=== PATIENT | female | born 1955 | race Caucasian/White ===

== ENCOUNTER 2020-06-13 16:33 | Inpatient (IN) | payer OTHER ==
[~2020-06-13] VITALS: Ht 160 cm; Wt 69.4 kg
[2020-06-13 18:16] LABS: BASOPHILS % 0.4 % (0.0-1.0); HEMATOCRIT 40.2 % (34.2-44.1); HEMOGLOBIN 13.1 g/dL (12.0-16.0); LYMPHOCYTES # (AUTO) 0.6 (1.0-3.2); LYMPHOCYTES % 22.4 % (18.0-39.1); MEAN CORPUSCULAR HEMOGLOBIN 29.4 pg (28-32); MEAN CORPUSCULAR HGB CONC 32.6 g/dL (31-35); MEAN CORPUSCULAR VOLUME 90.1 fL (81-99); MONOCYTES # (AUTO) 0.5 (0.2-0.8); MONOCYTES % 18.8 % (4.4-11.3); NEUTROPHILS # (AUTO) 1.5 (2.1-6.9); PLATELET COUNT 163 x10e3/uL (140-360); RED BLOOD COUNT 4.46 x10e6/uL (3.6-5.1); RED CELL DISTRIBUTION WIDTH 13.3 % (11.7-14.4)
[2020-06-13] MEDS ORDERED: ABILIFY15 MG (18:22)
[2020-06-13] MEDS ORDERED: ZOLPIDEM TARTRAT5 MG PO (18:22)
[2020-06-13] MEDS ORDERED: DIVALPROEX SOD500 M1 (18:22)
[2020-06-13] MEDS ORDERED: QUETIAPINE FUM100 MG PO (18:22)
[2020-06-13 18:37] LABS: ALANINE AMINOTRANSFERASE 70 IU/L (0-55); ALBUMIN 3.8 g/dL (3.5-5.0); ALBUMIN/GLOBULIN RATIO 0.8 (0.8-2.0); ALKALINE PHOSPHATASE 36 IU/L (40-150); ANION GAP 20.1 mmol/L (8-16); BLOOD UREA NITROGEN 18 mg/dL (7-26); BUN/CREATININE RATIO 19 (6-25); CALCIUM 8.9 mg/dL (8.4-10.2); CARBON DIOXIDE 23 mmol/L (22-29); CHLORIDE 100 mmol/L (98-107); CREATININE, SERUM 0.93 mg/dL (0.57-1.11); EST GLOMERULAR FILTRATION RATE > 60 ML/MIN (60-); GLUCOSE 75 mg/dL (74-118); POTASSIUM 4.1 mmol/L (3.5-5.1); SODIUM 139 mmol/L (136-145)
[2020-06-13] MEDS ORDERED: ACETAMINOPHEN 325 MG TAB PO ONE (19:00)
[2020-06-13 19:06] LABS: CLARITY,URINE SL CLOUDY (CLEAR); COLOR,URINE STRAW (YELLOW); KETONES,URINE >=160 (NEGATIVE); LEUKOCYTE ESTERASE ,URINE NEGATIVE (NEGATIVE); NITRITE,URINE NEGATIVE (NEGATIVE); PROTEIN,URINE DIPSTICK 2+ (NEGATIVE); URINE UROBILINOGEN 0.2 mg/dL (0.2 - 1)
[2020-06-13 19:18] LABS: BACTERIA,URINE FEW /HPF; EPITHELIAL CELLS,URINE RARE /LPF; RBC,URINE 0-5 /HPF (0-5)
[2020-06-13] MEDS ORDERED: ACETAMINOPHEN 325 MG TAB PO PRN ×2 (20:45→23:00)
[2020-06-13] MEDS ORDERED: DEXAMETHASONE SOD PHOS 10 MG/1 ML VIAL IV ONE (22:00)
[2020-06-13] MEDS: AZITHROMYCIN 500MG/NS 250 ML 250 ML IV SCH (23:13)
[2020-06-13] MEDS: ENOXAPARIN INJ 80 MG/0.8 ML SYR SC SCH (23:13)
[2020-06-13 23:38] LABS: CREATINE KINASE MB 6.4 ng/mL (0-5.0)
[2020-06-14] VITALS (9 sets, daily range): BP systolic 93–109; BP diastolic 64–81
[2020-06-14] MEDS ORDERED: HYDRALAZINE HCL 20 MG/ML VIAL IV PRN (01:15)
[2020-06-14] MEDS ORDERED: POLYETHYLENE GLYCOL 3350 17 GM PACK PO PRN (01:15)
[2020-06-14] MEDS ORDERED: TEMAZEPAM 7.5 MG CAP PO PRN (01:15)
[2020-06-14] MEDS ORDERED: ONDANSETRON HCL INJ 2MG/ML 2ML 2 MG/ML VIAL IV PRN (01:15)
[2020-06-14] MEDS: CEFTRIAXONE SOD 2 GM/NS 100 ML 100 ML IV SCH (02:36)
[2020-06-14] MEDS ORDERED: CEFTRIAXONE SOD 1 GM VIAL ONE (02:41)
[2020-06-14] MEDS ORDERED: SODIUM CHLORIDE 0.9% 100 ML ONE (02:42)
[2020-06-14] MEDS ORDERED: SODIUM CHLORIDE 0.9% 250ML 250 ML ONE (02:54)
[2020-06-14 08:25] LABS: HEMATOCRIT 39.4 % (34.2-44.1); HEMOGLOBIN 12.8 g/dL (12.0-16.0); LYMPHOCYTES # (AUTO) 0.8 (1.0-3.2); LYMPHOCYTES % 42.3 % (18.0-39.1); MEAN CORPUSCULAR HEMOGLOBIN 29.3 pg (28-32); MEAN CORPUSCULAR HGB CONC 32.5 g/dL (31-35); MEAN CORPUSCULAR VOLUME 90.2 fL (81-99); MONOCYTES # (AUTO) 0.2 (0.2-0.8); MONOCYTES % 8.2 % (4.4-11.3); PLATELET COUNT 179 x10e3/uL (140-360); RED BLOOD COUNT 4.37 x10e6/uL (3.6-5.1); RED CELL DISTRIBUTION WIDTH 13.3 % (11.7-14.4)
[2020-06-14] MEDS: ENOXAPARIN INJ 80 MG/0.8 ML SYR SC SCH (08:32)
[2020-06-14] MEDS: FAMOTIDINE 20 MG/2 ML VIAL IV SCH (08:32)
[2020-06-14] MEDS: ZINC SULFATE 220 MG CAP PO SCH (08:32)
[2020-06-14] MEDS: CHOLECALCIFEROL 400 UNIT TAB PO SCH (08:32)
[2020-06-14] MEDS: ASCORBIC ACID 500 MG TAB PO SCH ×2 (08:32→16:40)
[2020-06-14] MEDS: DOCUSATE SODIUM 100 MG CAP PO SCH ×2 (08:32→16:40)
[2020-06-14 08:55] LABS: ALANINE AMINOTRANSFERASE 63 IU/L (0-55); ALBUMIN 3.3 g/dL (3.5-5.0); ALBUMIN/GLOBULIN RATIO 0.7 (0.8-2.0); ALKALINE PHOSPHATASE 33 IU/L (40-150); ANION GAP 17.4 mmol/L (8-16); BLOOD UREA NITROGEN 19 mg/dL (7-26); BUN/CREATININE RATIO 25 (6-25); CALCIUM 8.7 mg/dL (8.4-10.2); CARBON DIOXIDE 22 mmol/L (22-29); CHLORIDE 104 mmol/L (98-107); CREATININE, SERUM 0.77 mg/dL (0.57-1.11); EST GLOMERULAR FILTRATION RATE > 60 ML/MIN (60-); GLUCOSE 128 mg/dL (74-118); PHOSPHORUS 4.2 MG/DL (2.3-4.7); POTASSIUM 4.4 mmol/L (3.5-5.1); SODIUM 139 mmol/L (136-145)
[2020-06-14 09:12] LABS: CREATINE KINASE 5822 IU/L (29-168)
[2020-06-14 10:17] LABS: INR 1.01; PROTHROMBIN TIME 13.9 seconds (11.9-14.5)
[2020-06-14 10:18] LABS: PARTIAL THROMBOPLASTIN TIME 42.8 seconds (23.8-35.5)
[2020-06-14] MEDS ORDERED: DEXTROSE 50% SYRINGE 50 ML IV PRN (12:15)
[2020-06-14] MEDS ORDERED: TEMAZEPAM 15 MG CAP PO PRN (13:30)
[2020-06-14] MEDS: DEXAMETHASONE SOD PHOS INJ 4 MG/ML VIAL IV SCH (13:47)
[2020-06-14] MEDS ORDERED: REMDESIVIR 200MG/NS 100ML 200 MG in SODIUM CHLORIDE 0.9% 100 ML 100 ML IV ONE ×2 (14:00→15:00)
[2020-06-14] MEDS: INSULIN REGULAR, HUMAN 100 UNIT/1 ML 3ML VIAL SQ SCH ×2 (16:30→20:45)
[2020-06-14] MEDS: AZITHROMYCIN 500MG/NS 250 ML 250 ML IV SCH (23:00)
[2020-06-15] VITALS (7 sets, daily range): BP systolic 90–106; BP diastolic 51–82
[2020-06-15] MEDS: CEFTRIAXONE SOD 2 GM/NS 100 ML 100 ML IV SCH (02:00)
[2020-06-15] MEDS ORDERED: DIAZEPAM5 MG PO (05:08)
[2020-06-15] MEDS ORDERED: LORAZEPAM INJ 2 MG/ML VIAL IV PRN (05:30)
[2020-06-15] MEDS: ENOXAPARIN 30 MG/0.3 ML SYR SC SCH ×2 (05:41→16:41)
[2020-06-15 06:05] LABS: BASOPHILS % 0.2 % (0.0-1.0); HEMATOCRIT 39.2 % (34.2-44.1); HEMOGLOBIN 12.2 g/dL (12.0-16.0); LYMPHOCYTES # (AUTO) 1.3 (1.0-3.2); LYMPHOCYTES % 30.3 % (18.0-39.1); MEAN CORPUSCULAR HGB CONC 31.1 g/dL (31-35); MEAN CORPUSCULAR VOLUME 93.3 fL (81-99); MONOCYTES # (AUTO) 0.6 (0.2-0.8); MONOCYTES % 12.7 % (4.4-11.3); NEUTROPHILS # (AUTO) 2.4 (2.1-6.9); NEUTROPHILS % 56.6 % (38.7-80.0); PLATELET COUNT 166 x10e3/uL (140-360); RED CELL DISTRIBUTION WIDTH 13.3 % (11.7-14.4)
[2020-06-15 06:22] LABS: ALANINE AMINOTRANSFERASE 55 IU/L (0-55); ALBUMIN 3.2 g/dL (3.5-5.0); ALBUMIN/GLOBULIN RATIO 0.7 (0.8-2.0); ALKALINE PHOSPHATASE 33 IU/L (40-150); ANION GAP 17.8 mmol/L (8-16); BLOOD UREA NITROGEN 22 mg/dL (7-26); BUN/CREATININE RATIO 29 (6-25); CALCIUM 8.3 mg/dL (8.4-10.2); CARBON DIOXIDE 24 mmol/L (22-29); CHLORIDE 107 mmol/L (98-107); CREATININE, SERUM 0.75 mg/dL (0.57-1.11); EST GLOMERULAR FILTRATION RATE > 60 ML/MIN (60-); GLUCOSE 93 mg/dL (74-118); POTASSIUM 4.8 mmol/L (3.5-5.1); SODIUM 144 mmol/L (136-145)
[2020-06-15] MEDS: INSULIN REGULAR, HUMAN 100 UNIT/1 ML 3ML VIAL SQ SCH ×4 (07:30→20:21)
[2020-06-15] MEDS: DEXAMETHASONE SOD PHOS INJ 4 MG/ML VIAL IV SCH (08:39)
[2020-06-15] MEDS: FAMOTIDINE 20 MG/2 ML VIAL IV SCH (08:40)
[2020-06-15] MEDS: ASCORBIC ACID 500 MG TAB PO SCH ×2 (08:40→16:41)
[2020-06-15] MEDS: CHOLECALCIFEROL 400 UNIT TAB PO SCH (08:40)
[2020-06-15] MEDS: ZINC SULFATE 220 MG CAP PO SCH (08:40)
[2020-06-15] MEDS: DOCUSATE SODIUM 100 MG CAP PO SCH ×2 (08:40→16:28)
[2020-06-15] MEDS: REMDESIVIR 100MG/NS 100ML 100 MG in SODIUM CHLORIDE 0.9% 100 ML 100 ML IV SCH (13:20)
[2020-06-15] MEDS ORDERED: REMDESIVIR 100MG/NS 100ML 100 MG IV SCH (14:00)
[2020-06-15] MEDS ORDERED: ENOXAPARIN SOD INJ 40 MG/0.4 ML SYR SC SCH (17:00)
[2020-06-15] MEDS: DEPAKOTE ER 500MG TAB(ONCE DAILY) PO SCH (21:28)
[2020-06-15] MEDS: AZITHROMYCIN 500MG/NS 250 ML 250 ML IV SCH (23:00)
[2020-06-15] MEDS: ZOLPIDEM TARTRATE 5 MG TAB PO PRN (23:10)
[2020-06-16] VITALS (10 sets, daily range): BP systolic 91–103; BP diastolic 62–75
[2020-06-16] MEDS: CEFTRIAXONE SOD 2 GM/NS 100 ML 100 ML IV SCH (02:00)
[2020-06-16 05:55] LABS: BASOPHILS % 0.3 % (0.0-1.0); HEMATOCRIT 36.5 % (34.2-44.1); HEMOGLOBIN 11.3 g/dL (12.0-16.0); LYMPHOCYTES # (AUTO) 2.1 (1.0-3.2); LYMPHOCYTES % 55.6 % (18.0-39.1); MEAN CORPUSCULAR HEMOGLOBIN 29.4 pg (28-32); MEAN CORPUSCULAR VOLUME 95.1 fL (81-99); MONOCYTES # (AUTO) 0.5 (0.2-0.8); MONOCYTES % 14.1 % (4.4-11.3); NEUTROPHILS # (AUTO) 1.1 (2.1-6.9); NEUTROPHILS % 29.7 % (38.7-80.0); PLATELET COUNT 159 x10e3/uL (140-360); RED BLOOD COUNT 3.84 x10e6/uL (3.6-5.1); RED CELL DISTRIBUTION WIDTH 13.6 % (11.7-14.4)
[2020-06-16 07:16] LABS: ALANINE AMINOTRANSFERASE 40 IU/L (0-55); ALBUMIN 2.7 g/dL (3.5-5.0); ALBUMIN/GLOBULIN RATIO 0.7 (0.8-2.0); ALKALINE PHOSPHATASE 28 IU/L (40-150); ANION GAP 11.3 mmol/L (8-16); BLOOD UREA NITROGEN 21 mg/dL (7-26); BUN/CREATININE RATIO 32 (6-25); CALCIUM 7.9 mg/dL (8.4-10.2); CARBON DIOXIDE 25 mmol/L (22-29); CHLORIDE 110 mmol/L (98-107); CREATININE, SERUM 0.65 mg/dL (0.57-1.11); EST GLOMERULAR FILTRATION RATE > 60 ML/MIN (60-); GLUCOSE 85 mg/dL (74-118); POTASSIUM 3.3 mmol/L (3.5-5.1); SODIUM 143 mmol/L (136-145)
[2020-06-16] MEDS: INSULIN REGULAR, HUMAN 100 UNIT/1 ML 3ML VIAL SQ SCH ×4 (07:30→20:54)
[2020-06-16] MEDS ORDERED: POTASSIUM CHLORIDE 20 MEQ TAB CR PO STA (07:39)
[2020-06-16] MEDS: DOCUSATE SODIUM 100 MG CAP PO SCH ×2 (08:35→16:02)
[2020-06-16] MEDS: DEXAMETHASONE SOD PHOS INJ 4 MG/ML VIAL IV SCH (08:52)
[2020-06-16] MEDS: FAMOTIDINE 20 MG/2 ML VIAL IV SCH (08:53)
[2020-06-16] MEDS: ENOXAPARIN 30 MG/0.3 ML SYR SC SCH ×2 (08:53→16:25)
[2020-06-16] MEDS: ASCORBIC ACID 500 MG TAB PO SCH ×2 (08:53→16:25)
[2020-06-16] MEDS: CHOLECALCIFEROL 400 UNIT TAB PO SCH (08:53)
[2020-06-16] MEDS: ZINC SULFATE 220 MG CAP PO SCH (08:53)
[2020-06-16 10:59] LABS: LYMPHOCYTES % (MANUAL) 54 % (19-48); MONOCYTES % (MANUAL) 13 % (3.4-9.0); NEUTROPHILS % (MANUAL) 33 % (40-74)
[2020-06-16] MEDS: REMDESIVIR 100MG/NS 100ML 100 MG in SODIUM CHLORIDE 0.9% 100 ML 100 ML IV SCH (14:35)
[2020-06-16] MEDS: DEPAKOTE ER 500MG TAB(ONCE DAILY) PO SCH (21:45)
[2020-06-16] MEDS: AZITHROMYCIN 500MG/NS 250 ML 250 ML IV SCH (23:00)
[2020-06-16] MEDS: ZOLPIDEM TARTRATE 5 MG TAB PO PRN (23:04)
[2020-06-17] VITALS (10 sets, daily range): BP systolic 93–119; BP diastolic 54–86
[2020-06-17] MEDS: CEFTRIAXONE SOD 2 GM/NS 100 ML 100 ML IV SCH (02:00)
[2020-06-17 06:39] LABS: BASOPHILS % 0.2 % (0.0-1.0); HEMATOCRIT 35.6 % (34.2-44.1); HEMOGLOBIN 11.3 g/dL (12.0-16.0); LYMPHOCYTES # (AUTO) 2.2 (1.0-3.2); LYMPHOCYTES % 52.7 % (18.0-39.1); MEAN CORPUSCULAR HEMOGLOBIN 29.7 pg (28-32); MEAN CORPUSCULAR HGB CONC 31.7 g/dL (31-35); MEAN CORPUSCULAR VOLUME 93.4 fL (81-99); MONOCYTES # (AUTO) 0.5 (0.2-0.8); MONOCYTES % 11.9 % (4.4-11.3); NEUTROPHILS # (AUTO) 1.4 (2.1-6.9); NEUTROPHILS % 34.5 % (38.7-80.0); PLATELET COUNT 174 x10e3/uL (140-360); RED BLOOD COUNT 3.81 x10e6/uL (3.6-5.1); RED CELL DISTRIBUTION WIDTH 13.2 % (11.7-14.4)
[2020-06-17 07:06] LABS: ALANINE AMINOTRANSFERASE 36 IU/L (0-55); ALBUMIN 2.6 g/dL (3.5-5.0); ALBUMIN/GLOBULIN RATIO 0.7 (0.8-2.0); ALKALINE PHOSPHATASE 30 IU/L (40-150); ANION GAP 12.3 mmol/L (8-16); BLOOD UREA NITROGEN 18 mg/dL (7-26); BUN/CREATININE RATIO 29 (6-25); CARBON DIOXIDE 25 mmol/L (22-29); CHLORIDE 107 mmol/L (98-107); CREATININE, SERUM 0.62 mg/dL (0.57-1.11); EST GLOMERULAR FILTRATION RATE > 60 ML/MIN (60-); GLUCOSE 97 mg/dL (74-118); POTASSIUM 3.3 mmol/L (3.5-5.1); SODIUM 141 mmol/L (136-145)
[2020-06-17] MEDS ORDERED: ATROPINE SULFATE 0.1 MG/ML 10ML SYR IV PRN (07:30)
[2020-06-17] MEDS: INSULIN REGULAR, HUMAN 100 UNIT/1 ML 3ML VIAL SQ SCH ×4 (07:30→21:12)
[2020-06-17] MEDS ORDERED: POTASSIUM CHLORIDE 20 MEQ TAB CR PO ONE (07:50)
[2020-06-17] MEDS: DEXAMETHASONE SOD PHOS INJ 4 MG/ML VIAL IV SCH (09:13)
[2020-06-17] MEDS: ASCORBIC ACID 500 MG TAB PO SCH ×2 (09:14→15:55)
[2020-06-17] MEDS: DOCUSATE SODIUM 100 MG CAP PO SCH ×2 (09:14→15:55)
[2020-06-17] MEDS: CHOLECALCIFEROL 400 UNIT TAB PO SCH (09:14)
[2020-06-17] MEDS: ENOXAPARIN 30 MG/0.3 ML SYR SC SCH ×2 (09:14→15:55)
[2020-06-17] MEDS: ZINC SULFATE 220 MG CAP PO SCH (09:14)
[2020-06-17] MEDS: FAMOTIDINE 20 MG/2 ML VIAL IV SCH (09:14)
[2020-06-17] MEDS: REMDESIVIR 100MG/NS 100ML 100 MG in SODIUM CHLORIDE 0.9% 100 ML 100 ML IV SCH (15:06)
[2020-06-17] MEDS: DEPAKOTE ER 500MG TAB(ONCE DAILY) PO SCH (21:09)
[2020-06-17] MEDS: ZOLPIDEM TARTRATE 5 MG TAB PO PRN (21:15)
[2020-06-17] MEDS: AZITHROMYCIN 500MG/NS 250 ML 250 ML IV SCH (22:30)
[2020-06-18] MEDS: CEFTRIAXONE SOD 2 GM/NS 100 ML 100 ML IV SCH (01:48)
[2020-06-18 04:00] VITALS: BP 113/73
[2020-06-18 05:21] LABS: HEMATOCRIT 34.3 % (34.2-44.1); HEMOGLOBIN 10.9 g/dL (12.0-16.0); LYMPHOCYTES # (AUTO) 2.2 (1.0-3.2); LYMPHOCYTES % 45.9 % (18.0-39.1); MEAN CORPUSCULAR HEMOGLOBIN 29.1 pg (28-32); MEAN CORPUSCULAR HGB CONC 31.8 g/dL (31-35); MEAN CORPUSCULAR VOLUME 91.7 fL (81-99); MONOCYTES # (AUTO) 0.4 (0.2-0.8); NEUTROPHILS # (AUTO) 2.1 (2.1-6.9); PLATELET COUNT 205 x10e3/uL (140-360); RED BLOOD COUNT 3.74 x10e6/uL (3.6-5.1); RED CELL DISTRIBUTION WIDTH 13.2 % (11.7-14.4)
[2020-06-18 05:51] LABS: ALANINE AMINOTRANSFERASE 30 IU/L (0-55); ALBUMIN 2.7 g/dL (3.5-5.0); ALBUMIN/GLOBULIN RATIO 0.8 (0.8-2.0); ALKALINE PHOSPHATASE 28 IU/L (40-150); ANION GAP 13.8 mmol/L (8-16); BLOOD UREA NITROGEN 13 mg/dL (7-26); BUN/CREATININE RATIO 20 (6-25); CALCIUM 8.2 mg/dL (8.4-10.2); CARBON DIOXIDE 25 mmol/L (22-29); CHLORIDE 108 mmol/L (98-107); CREATININE, SERUM 0.64 mg/dL (0.57-1.11); EST GLOMERULAR FILTRATION RATE > 60 ML/MIN (60-); GLUCOSE 96 mg/dL (74-118); POTASSIUM 3.8 mmol/L (3.5-5.1); SODIUM 143 mmol/L (136-145)
[2020-06-18 06:17] LABS: MAGNESIUM 1.7 MG/DL (1.3-2.1); PHOSPHORUS 3.8 MG/DL (2.3-4.7)
[2020-06-18 07:18] VITALS: BP 109/69
[2020-06-18] MEDS: INSULIN REGULAR, HUMAN 100 UNIT/1 ML 3ML VIAL SQ SCH ×2 (07:18→10:57)
[2020-06-18 07:20] VITALS: BP 109/69
[2020-06-18] MEDS: ENOXAPARIN 30 MG/0.3 ML SYR SC SCH (07:33)
[2020-06-18] MEDS: ASCORBIC ACID 500 MG TAB PO SCH (07:33)
[2020-06-18] MEDS: DOCUSATE SODIUM 100 MG CAP PO SCH (07:33)
[2020-06-18] MEDS: ZINC SULFATE 220 MG CAP PO SCH (07:33)
[2020-06-18] MEDS: FAMOTIDINE 20 MG/2 ML VIAL IV SCH (07:33)
[2020-06-18] MEDS: CHOLECALCIFEROL 400 UNIT TAB PO SCH (07:33)
[2020-06-18] MEDS: DEXAMETHASONE SOD PHOS INJ 4 MG/ML VIAL IV SCH (07:33)
[2020-06-18 08:03] LABS: LYMPHOCYTES % (MANUAL) 36 % (19-48); MONOCYTES % (MANUAL) 9 % (3.4-9.0); NEUTROPHILS % (MANUAL) 53 % (40-74); PLATELET ESTIMATE ADEQUATE; PLATELET MORPHOLOGY COMMENT NORMAL; RBC MORPHOLOGY COMMENT NORMAL
[2020-06-18 11:06] VITALS: BP 102/64
[2020-06-18] MEDS ORDERED: ELIQUIS2.5 MG PO (12:46)
[2020-06-18] MEDS ORDERED: DECADRON4 M1 PO (12:46)
[2020-06-18] MEDS ORDERED: ASCORBIC ACID500 MG PO (12:46)
[2020-06-18] MEDS ORDERED: ZINC SULFATE220 M1 PO (12:46)
[2020-06-18] MEDS ORDERED: ONDANSETRON HCL 4 MG ORAL DISINTEGRATING TAB PO PRN (13:45)
[2020-06-18] MEDS: REMDESIVIR 100MG/NS 100ML 100 MG in SODIUM CHLORIDE 0.9% 100 ML 100 ML IV SCH (14:05)
[2020-06-18 15:10] VITALS: BP 103/59
[2020-06-19] MEDS ORDERED: FAMOTIDINE 20 MG TAB PO SCH (07:30)
== END 2020-06-18 15:30 | disposition home or self-care (01) | DRG 177 ==
LOC: ER 18:14 → ERHOLD 20:16 → IMCU 06-14 02:11
PROVIDERS: ADMIT Internal Medicine; ATTEND Internal Medicine
PROC: 3E0333Z Introduction of Anti-inflammatory into Peripheral Vein, Percutaneous Approach (ICD-10-PCS; principal; 2020-06-13)
PROC: XW033E5 Introduction of Remdesivir Anti-infective into Peripheral Vein, Percutaneous Approach, New Technology Group 5 (ICD-10-PCS; 2020-06-14)
DX: U07.1 COVID-19 (principal); J12.82 Pneumonia due to coronavirus disease 2019; J96.01 Acute respiratory failure with hypoxia; R41.82 Altered mental status, unspecified; E11.9 Type 2 diabetes mellitus without complications; Z79.4 Long term (current) use of insulin; Z87.891 Personal history of nicotine dependence; D72.819 Decreased white blood cell count, unspecified; E87.6 Hypokalemia; F31.9 Bipolar disorder, unspecified; F41.9 Anxiety disorder, unspecified; R53.81 Other malaise
CPT/HCPCS: 36415; 70450; 71045; 80053; 81001; 82550; 82553; 82948; 83735; 84100; 84484; 85025; 85610; 85730; 87040; 93005; 96372; 99284; J0456; J0696; J1100; J1650; J1817; J7050; U0002